=== PATIENT | male | born 1955 | race African-American/Black ===

== ENCOUNTER 2017-04-11 19:21 | Emergency (ER) | payer OTHER | END 2017-04-11 20:26 | disposition home or self-care (01) | LOC: FTE 19:21 | DX: Z76.0 Encounter for issue of repeat prescription (principal); I10 Essential (primary) hypertension; E11.9 Type 2 diabetes mellitus without complications; Z79.4 Long term (current) use of insulin; Z79.84 Long term (current) use of oral hypoglycemic drugs | CPT/HCPCS: 99281; Z7502 ==

== ENCOUNTER 2017-04-25 10:37 | Emergency (ER) | payer OTHER | END 2017-04-26 17:40 | disposition home or self-care (01) | LOC: E/R 04-26 17:40 | DX: R05 Cough (principal); I10 Essential (primary) hypertension; E11.9 Type 2 diabetes mellitus without complications; Z79.4 Long term (current) use of insulin | CPT/HCPCS: 99284; Z7502 ==

== ENCOUNTER 2017-07-09 17:02 | Emergency (ER) | payer OTHER | END 2017-07-09 18:00 | disposition home or self-care (01) | LOC: E/R 18:00 → FTE 17:02 | DX: Z76.0 Encounter for issue of repeat prescription (principal); I10 Essential (primary) hypertension; E11.9 Type 2 diabetes mellitus without complications; Z79.4 Long term (current) use of insulin | CPT/HCPCS: 99281 ==

== ENCOUNTER 2017-08-06 17:10 | Emergency (ER) | payer OTHER | END 2017-08-06 18:58 | disposition home or self-care (01) | LOC: E/R 17:10 | DX: Z76.0 Encounter for issue of repeat prescription (principal); E11.9 Type 2 diabetes mellitus without complications; I10 Essential (primary) hypertension; Z79.4 Long term (current) use of insulin | CPT/HCPCS: 99281; Z7502 ==

== ENCOUNTER 2017-09-12 19:26 | Emergency (ER) | payer OTHER | END 2017-09-12 20:30 | disposition home or self-care (01) | LOC: E/R 19:26 | DX: Z76.0 Encounter for issue of repeat prescription (principal); I10 Essential (primary) hypertension; E11.9 Type 2 diabetes mellitus without complications; Z79.4 Long term (current) use of insulin | CPT/HCPCS: 99281; Z7502 ==

== ENCOUNTER 2017-09-24 17:47 | Emergency (ER) | payer OTHER | END 2017-09-24 17:58 | disposition home or self-care (01) | LOC: FTE 17:47 → E/R 17:58 | DX: Z76.0 Encounter for issue of repeat prescription (principal); I10 Essential (primary) hypertension; E11.9 Type 2 diabetes mellitus without complications; Z79.4 Long term (current) use of insulin | CPT/HCPCS: 99281 ==

== ENCOUNTER 2018-02-11 18:58 | Emergency (ER) | payer OTHER | END 2018-02-11 20:01 | disposition home or self-care (01) | LOC: FTE 18:58 | DX: Z76.0 Encounter for issue of repeat prescription (principal); I10 Essential (primary) hypertension; E11.9 Type 2 diabetes mellitus without complications; Z79.4 Long term (current) use of insulin | CPT/HCPCS: 99281 ==

== ENCOUNTER 2018-04-08 16:49 | Emergency (ER) | payer MEDICAID, OTHER | END 2018-04-08 18:12 | disposition home or self-care (01) | LOC: FTE 18:12 | DX: Z76.0 Encounter for issue of repeat prescription (principal); E11.9 Type 2 diabetes mellitus without complications; I10 Essential (primary) hypertension; Z79.4 Long term (current) use of insulin | CPT/HCPCS: 99281; Z7502 ==

== ENCOUNTER 2018-04-10 16:55 | Emergency (ER) | payer MEDICAID | END 2018-04-10 17:54 | disposition home or self-care (01) | LOC: FTE 16:55 | DX: R05 Cough (principal); I10 Essential (primary) hypertension; E11.9 Type 2 diabetes mellitus without complications; Z79.4 Long term (current) use of insulin | CPT/HCPCS: 99283; Z7502 ==

== ENCOUNTER 2018-05-11 18:06 | Emergency (ER) | payer MEDICAID ==
[2018-05-11] MEDS: ACETAMINOPHEN 325 MG TAB PO (21:23)
[2018-05-11] MEDS: OSELTAMIVIR 75 MG CAP PO (22:31)
== END 2018-05-11 22:44 | disposition home or self-care (01) ==
LOC: FTE 18:06
DX: J10.1 Influenza due to other identified influenza virus with other respiratory manifestations (principal); E11.9 Type 2 diabetes mellitus without complications; I10 Essential (primary) hypertension; Z79.4 Long term (current) use of insulin
CPT/HCPCS: 71045; 87400; 99284-25

== ENCOUNTER 2018-06-10 17:40 | Emergency (ER) | payer OTHER, MEDICAID | END 2018-06-10 19:38 | disposition home or self-care (01) | LOC: FTE 17:40 | DX: I10 Essential (primary) hypertension (principal); E11.9 Type 2 diabetes mellitus without complications; Z79.4 Long term (current) use of insulin | CPT/HCPCS: 99281; Z7502 ==